=== PATIENT | male | born 1960 ===

== ENCOUNTER 2018-03-29 14:54 | Day surgery (SDC) | payer OTHER ==
[2018-03-18 12:02] VITALS: BP 137/96
[~2018-03-29] VITALS: Ht 180.3 cm; Wt 92.2 kg
[~2018-03-29 14:54] MED LIST: ASPI-496 PO; ATEN50TA41 PO; CEFAZOLIN 1,000 MG ONE; CETI10TA24 PO; DEXAMETHASONE 4 MG/ML, 1ML ONE; GABA300C10 PO; ONDANSETRON 2MG/ML, 2ML ONE; PROPOFOL 10 MG/ML, 20ML ONE; TELM1TAB2 PO
[2018-03-29 15:33] VITALS: BP 137/96
[2018-03-29] MEDS: LACTATED RINGERS 1,000 ML IV SCH ×2 (15:59→16:00)
[2018-03-29] MEDS ORDERED: FENTANYL PF 250 MCG/5ML ONE (18:03)
[2018-03-29] MEDS ORDERED: MIDAZOLAM 1 MG/ML, 2ML ONE (18:03)
[2018-03-29] MEDS ORDERED: BUPIVACAINE/PF-EPI 0.5% 1:200K ONE (18:23)
[2018-03-29] MEDS ORDERED: FENTANYL PF 100 MCG/2ML IV PRN (19:30)
[2018-03-29] MEDS ORDERED: DIAZEPAM 5 MG/ML, 2ML IVPush PRN (19:30)
[2018-03-29] MEDS ORDERED: MEPERIDINE/PF 25MG/0.5ML IVPush PRN (19:30)
[2018-03-29] MEDS ORDERED: PROMETHAZINE 25 MG/ML, 1ML IV PRN (19:30)
[2018-03-29] MEDS ORDERED: OXYcodone 5 MG/5 ML ORAL.SOL UDC PO PRN (19:30)
[2018-03-29] MEDS ORDERED: ACETAMINOPHEN 325 MG TABLET PO PRN (19:30)
[2018-03-29] MEDS ORDERED: hydrALAzine 20 MG/ML, 1ML IV PRN (19:30)
[2018-03-29] MEDS ORDERED: ALBUTEROL SULFATE 2.5 MG/3 ML NPPB PRN (19:30)
[2018-03-29] MEDS ORDERED: LABETALOL 5MG/ML, 20ML IV PRN (19:30)
[2018-03-29] MEDS ORDERED: HYDROmorphone 2 MG/ML, 1ML IVPush PRN (19:30)
[2018-03-29] MEDS ORDERED: ACETAMINOPHEN 650 MG/20.3 ML UDC ONE (20:03)
[2018-03-29] MEDS ORDERED: OXYcodone 5 MG/5 ML ORAL.SOL UDC ONE (20:03)
[2018-03-29] MEDS ORDERED: ONDANSETRON 2MG/ML, 2ML ONE (20:22)
== END 2018-03-29 23:05 | disposition home or self-care (01) ==
LOC: OR 14:54 → 4NOR 20:43 → OR 22:09
PROVIDERS: ATTEND Podiatrist Foot & Ankle Surgery
DX: M25.371 Other instability, right ankle (principal); M24.574 Contracture, right foot; M62.81 Muscle weakness (generalized); Q66.1 Congenital talipes calcaneovarus; I10 Essential (primary) hypertension; Z79.82 Long term (current) use of aspirin
CPT/HCPCS: 27691; 27695; 28306; 64447; C1713; J0690; J1100; J2250; J2405; J2704; J3010; J7120; G0378